=== PATIENT | male | born 1970 | race African-American/Black ===

== ENCOUNTER 2019-07-04 09:29 | Emergency (ER) | payer MEDICAID ==
[~2019-07-04] VITALS: Ht 182.9 cm; Wt 100.0 kg
[~2019-07-04 09:29] MED LIST: HYDR-3927 PO; NORVASC
[2019-07-04] MEDS ORDERED: SODIUM CHLORIDE 0.9% 1,000 ML IV ONE (10:14)
[2019-07-04] MEDS ORDERED: CEFAZOLIN 1000MG PREMIX 50 ML IV ONE (10:15)
[2019-07-04] MEDS ORDERED: ONDANSETRON HCL 4MG/2ML INJ IV STA (10:18)
[2019-07-04] MEDS ORDERED: MORPHINE SULFATE 4 MG/ML CPJ (NOT FOR IM USE) IV STA (10:18)
[2019-07-04 10:25] LABS: BASOPHILS % 0.5 % (0.0-2.0); EOSINOPHILS % 0.4 % (0.0-5.0); HEMATOCRIT. 43.8 % (42.0-52.0); HEMOGLOBIN. 15.5 g/dL (14.0-18.0); MEAN CORPUSCULAR HEMOGLOBIN 34.8 pg (28.0-32.0); MEAN CORPUSCULAR VOLUME 98.6 fL (80.0-94.0); MONOCYTES % 6.1 % (2.0-8.0); PLATELET 306 x1000/uL (130-400); RED BLOOD CELL COUNT 4.44 mill/uL (4.7-6.1); RED CELL DISTRIBUTION WIDTH 15.4 % (11.6-14.6)
[2019-07-04 10:32] LABS: CHLORIDE 106 mEq/L (98-107)
[2019-07-04 12:11] LABS: PROTHROMBIN TIME 10.5 sec (9.6-11.0)
[2019-07-04] MEDS ORDERED: MORPHINE SULFATE 4 MG/ML CPJ (NOT FOR IM USE) IV ONE (12:30)
[2019-07-04 16:10] VITALS: BP 129/91
== END 2019-07-04 15:53 | disposition short-term general hospital (02) ==
LOC: ER 09:46
DX: S02.609A Fracture of mandible, unspecified, initial encounter for closed fracture (principal); S01.112A Laceration without foreign body of left eyelid and periocular area, initial encounter; I10 Essential (primary) hypertension; F14.10 Cocaine abuse, uncomplicated; S06.9X9A Unspecified intracranial injury with loss of consciousness of unspecified duration, initial encounter; Y04.0XXA Assault by unarmed brawl or fight, initial encounter; Y93.89 Activity, other specified; Y92.89 Other specified places as the place of occurrence of the external cause; Y99.8 Other external cause status
CPT/HCPCS: 36415; 70450; 70486; 80053; 85025; 85610; 96365; 96375; 96376; 99285; J0690; J2270; J2405; J7030